=== PATIENT | male | born 1955 | race Caucasian/White ===

== ENCOUNTER 2018-03-01 15:51 | Observation (INO) ==
[2018-03-01] MEDS ORDERED: Aspirin 81 MG TAB.CHEW PO ONE (16:08)
--- NOTE | 2018-03-01 16:12 | Emergency Department Note ---
Disposition Clinical Impression: Chest pain Qualifiers: Chest pain type: unspecified Qualified Code(s): R07.9 - Chest pain, unspecified Disposition: Admitted As Inpatient Condition: Fair Time of Disposition: 19:41 Chest Pain HPI - General Chief Complaint: ED Chest Pain Stated Complaint: chest pain x 2 hrs Time Seen by Provider: 03/01/18 16:00 Source: patient Limitations: no limitations Vital Signs Reviewed: Yes Nursing Notes Reviewed: Yes - History of Present Illness HPI Narrative: 62-year-old male presents from home for evaluation of chest pain. Onset 2 hours prior to arrival. Described as substernal intense heaviness rated 8/10 in severity. Nonradiating. Associated with dyspnea and lightheadedness. This occurred while he was sitting and at rest. It is been constant since onset. Patient is a history of CA with stent 1 placed 3 years ago. His symptoms today are slightly different than symptoms of his previous CA and at his prior CA this chest pain or laxity and waning and he had associated left jaw numbness. PMH: Obesity, hyperlipidemia, COPD Antiplatelet: Aspirin and Plavix. Anticoagulant: None Health Care Facility Administrator: Dr. Diaz ROS: Positive: As above Negative: Fever, chills, nausea, vomiting, palpitations, back pain, numbness/ tingling/weakness of his upper extremities, cough, abdominal pain Severity scale (1-10): 8 - Related Data Home Medications Medication Instructions Recorded Confirmed Aspirin [Adult Low Dose Aspirin EC] 81 mg PO QAM 10/05/15 03/01/18 Atorvastatin Calcium [Lipitor] 20 mg PO QPM 10/05/15 03/01/18 Clopidogrel [Plavix] 75 mg PO QAM 10/05/15 03/01/18 FLUoxetine HCl [Prozac] 20 mg PO QAM 10/05/15 03/01/18 Folic Acid 1 mg PO QAM 10/05/15 03/01/18 Methotrexate [Otrexup] 17.5 mg PO FR 10/05/15 03/01/18 Metoprolol XL (24 HR) Succ [Toprol 25 mg PO QAM 10/05/15 03/01/18 Xl] Omeprazole [PriLOSEC] 20 mg PO BID 10/05/15 03/01/18 Hydroxychloroquine [Plaquenuil] 400 mg PO DAILY 03/01/18 03/01/18 Previous Rx's Medication Instructions Recorded Albuterol Sulfate [Albuterol 2 puff IH Q4HR #1 hfa.aer.ad 10/09/15 Inhaler] Allergies Allergy/AdvReac Type Severity Reaction Status Date / Time No Known Allergies Allergy Verified 03/01/18 15:54 All systems ED: reviewed and negative except as stated. Review of Systems: As Per HPI Chest Pain PMH - Past Medical History Medical history: Reports: arthritis, cancer, COPD, GERD, hyperlipidemia, hypertension, myocardial infarction, RA Surgical history: Reports: no surgical history Psychiatric history: Reports: no psych history - Social History Smoking Status: Former smoker Alcohol use: Reports: rarely Drug use: Reports: none Physical Exam Vital Signs Reviewed General: Patient is alert, oriented, and in moderate distress and discomfort from his chest symptoms Head: atraumatic, normocephalic Eye: normal appearance, no scleral icterus, no conjunctival injection ENT: mucous membranes moist, normal external ear exam Neck: normal inspection, trachea midline, full ROM Chest: normal inspection, symmetric chest rise Respiratory: Good respiratory effort. Bilateral breath sounds are clear without wheezing, crackles, or rhonchi. Cardiovascular: Regular rate and rhythm. No clicks, rubs, gallops, or murmors. Normal heart sounds. Bilateral radial pulses 2/4 and equal. Abdomen: Obese. Bowel sounds present normoactive x-4 quadrants. Abdomen is soft, nondistended, and nontender. No guarding or rebound. Musculoskeletal: Spontaneously moving all extremities. Skin: warm, dry, intact. Neuro: Alert and oriented x4. Sensation light touch intact. Psych: Patient's affect is appropriate for situation. - General Limitations: no limitations General appearance: alert, in no apparent distress Course Course Narrative: Patient's chest pain improved from /10-6/10 after sublingual nitroglycerin 3. Blood pressure remained appropriate. Serum hematology is unremarkable. Serum chemistry unremarkable; specifically normal troponin. Chest x-ray per radiology read shows some vascular congestion without edema; patient's lung sounds clear on physical exam. Patient's history and story are concerning. He is in agreement to admission for continued evaluation and management. I discussed the patient with having hospitalist who agrees to accept the patient for continued evaluation and management for chest pain rule out ACS. EKG dated 03/01/18 at 16:04 interpreted as sinus rhythm with rate of 64. IL 167 , QRS 100, QTC 420. Left axis. Compared to previous EKG dated to October 2015 showing no acute ischemic changes comparison. Chest X-Ray 03/01/18 16:09 IMPRESSION: Pulmonary vascular congestion without overt pulmonary edema. D/ / Mp Khan MD / Mp Khan MD Interpreting Provider: Mp Khan MD Vital Signs Temperature 98.3 F 03/01/18 15:54 Pulse Rate 67 03/01/18 15:54 Respiratory Rate 20 03/01/18 15:54 Blood Pressure 143/78 03/01/18 15:54 O2 Sat by Pulse Oximetry 95 03/01/18 15:54 Temperature 98.3 F 03/01/18 16:01 Pulse Rate 50 03/01/18 18:30 Respiratory Rate 18 03/01/18 18:30 Blood Pressure 119/70 03/01/18 18:30 O2 Sat by Pulse Oximetry 98 03/01/18 18:30 Oxygen Delivery Oxygen Delivery Nasal Cannula Chest Pain - Lab Data Result diagrams: 03/01/18 16:18 03/01/18 16:18 Lab Results 03/01/18 03/01/18 Range/Units 16:18 16:18 WBC 6.3 (4.3-11.1) K/mcL RBC 4.97 (4.19-5.50) M/mcL Hgb 15.3 (12.9-16.9) g/dL Hct 43.8 (37.5-50.1) % MCV 88.1 (83.0-100.0) fL MCH 30.8 (28.0-33.3) pg MCHC 34.9 (31.6-35.5) g/dL RDW 13.5 (11.5-14.5) % Plt Count 133 L (140-400) K/mcL MPV 12.4 (9.4-12.4) fL Immature Gran % 0.6 (0-4) % Seg Neutrophils % 64.9 % Lymphocytes % 19.0 % Monocytes % 11.9 % Eosinophils % 3.3 % Basophils % 0.3 % Neutrophils # 4.1 (1.6-8.9) K/mcL Lymphocytes # 1.2 (0.6-4.6) K/mcL Monocytes # 0.8 (0.0-1.3) K/mcL Eosinophils # 0.2 (0.0-0.6) K/mcL Basophils # 0.0 (0.0-0.2) K/mcL Sodium 139 (136-145) mEq/L Potassium 3.9 (3.5-5.1) mEq/L Chloride 107 (98-107) mEq/L Carbon Dioxide 27 (23-29) mEq/L BUN 12 (8-23) mg/dL Creatinine 1.00 (0.70-1.30) mg/dL Est GFR ( Amer) > 60 (> 60) Est GFR (Non-Af Amer) > 60 (> 60) BUN/Creatinine Ratio 12 (6-26) Glucose 89 (70-105) mg/dL Calculated Osmolality 287 (280-300) Calcium 9.0 (8.6-10.3) mg/dL Troponin I < 0.03 (< 0.04) ng/mL Heart Score - Score History: Moderately Suspicious EKG: Non Specific repolarisation Disturbance Age: 45-65 Risk Factors: Equal/Greater than 3 risk factor or history of atherosclerotic disease Troponin: Less than normal limit HEART Score Total: 5
--- NOTE | 2018-03-01 16:23 | Emergency Department Note ---
Disposition Clinical Impression: Chest pain Disposition: Admitted As Inpatient Condition: Good General Adult HPI - General Chief complaint: ED Chest Pain Stated complaint: chest pain x 2 hrs Time Seen by Provider: 03/01/18 16:00 Source: patient Limitations: no limitations - History of Present Illness Pain Scale: 8 - Related Data Home Medications Medication Instructions Recorded Confirmed Aspirin [Adult Low Dose Aspirin EC] 81 mg PO QAM 10/05/15 03/01/18 Atorvastatin Calcium [Lipitor] 20 mg PO QPM 10/05/15 03/01/18 Clopidogrel [Plavix] 75 mg PO QAM 10/05/15 03/01/18 FLUoxetine HCl [Prozac] 20 mg PO QAM 10/05/15 03/01/18 Folic Acid 1 mg PO QAM 10/05/15 03/01/18 Methotrexate [Otrexup] 17.5 mg PO FR 10/05/15 03/01/18 Metoprolol XL (24 HR) Succ [Toprol 25 mg PO QAM 10/05/15 03/01/18 Xl] Omeprazole [PriLOSEC] 20 mg PO BID 10/05/15 03/01/18 Hydroxychloroquine [Plaquenuil] 400 mg PO DAILY 03/01/18 03/01/18 Previous Rx's Medication Instructions Recorded Albuterol Sulfate [Albuterol 2 puff IH Q4HR #1 hfa.aer.ad 10/09/15 Inhaler] Allergies Allergy/AdvReac Type Severity Reaction Status Date / Time No Known Allergies Allergy Verified 03/01/18 15:54 Past Medical History - Past Medical History Medical history: Reports: arthritis, cancer, COPD, GERD, hyperlipidemia, hypertension, myocardial infarction, RA Surgical history: Reports: no surgical history Psychiatric history: Reports: no psych history - Social History Smoking Status: Former smoker Smokeless Tobacco Status: No Alcohol use: Reports: rarely Drug use: Reports: none Physical Exam - General Limitations: no limitations General appearance: alert, in no apparent distress Course Vital Signs Temperature 98.3 F 03/01/18 15:54 Pulse Rate 67 03/01/18 15:54 Respiratory Rate 20 03/01/18 15:54 Blood Pressure 143/78 03/01/18 15:54 O2 Sat by Pulse Oximetry 95 03/01/18 15:54 Temperature 97.9 F 03/02/18 11:10 Pulse Rate 54 03/02/18 11:10 Respiratory Rate 15 03/02/18 11:10 Blood Pressure 119/78 03/02/18 11:10 O2 Sat by Pulse Oximetry 93 03/02/18 11:10 Oxygen Delivery Oxygen Delivery Nasal Cannula Medical Decision Making - Lab Data Result diagrams: 03/02/18 04:30 03/02/18 04:30 Lab Results 03/01/18 03/01/18 Range/Units 16:18 16:18 WBC 6.3 (4.3-11.1) K/mcL RBC 4.97 (4.19-5.50) M/mcL Hgb 15.3 (12.9-16.9) g/dL Hct 43.8 (37.5-50.1) % MCV 88.1 (83.0-100.0) fL MCH 30.8 (28.0-33.3) pg MCHC 34.9 (31.6-35.5) g/dL RDW 13.5 (11.5-14.5) % Plt Count 133 L (140-400) K/mcL MPV 12.4 (9.4-12.4) fL Immature Gran % 0.6 (0-4) % Seg Neutrophils % 64.9 % Lymphocytes % 19.0 % Monocytes % 11.9 % Eosinophils % 3.3 % Basophils % 0.3 % Neutrophils # 4.1 (1.6-8.9) K/mcL Lymphocytes # 1.2 (0.6-4.6) K/mcL Monocytes # 0.8 (0.0-1.3) K/mcL Eosinophils # 0.2 (0.0-0.6) K/mcL Basophils # 0.0 (0.0-0.2) K/mcL Sodium 139 (136-145) mEq/L Potassium 3.9 (3.5-5.1) mEq/L Chloride 107 (98-107) mEq/L Carbon Dioxide 27 (23-29) mEq/L BUN 12 (8-23) mg/dL Creatinine 1.00 (0.70-1.30) mg/dL Est GFR ( Amer) > 60 (> 60) Est GFR (Non-Af Amer) > 60 (> 60) BUN/Creatinine Ratio 12 (6-26) Glucose 89 (70-105) mg/dL Calculated Osmolality 287 (280-300) Calcium 9.0 (8.6-10.3) mg/dL Troponin I < 0.03 (< 0.04) ng/mL Attestation Statement - Attestation Attestation: I examined this patient and my medical decision-making was reviewed with the [employer] KEE[employer] HELPER/PA/Advanced Practice Nurse/Resident Physician. I agree with the documented findings, disposition and treatment plan as described except to the extent set forth below. I did see the patient is spoke with him and examine him. Does have chest discomfort which started at noon today and is constant and exertional with associated dyspnea. No radiation to the back. No pleuritic aspect. No pain or swelling of the lower extremities. Patient does have a history of cardiac disease with myocardial infarction 2 or 3 years ago. I did review the patient' s EKG showing normal sinus rhythm with rate of 64 without acute ischemic change. Labs pending. 1623 Patient did have a second EKG showing normal sinus rhythm without evidence of ischemic change and this was done at 4:46 PM normal sinus rhythm with rate of 63. Troponin is negative despite over 4 hours of ongoing pain. Patient will be admitted to the hospital, history of cardiac disease which is concerning. I do not suspect pulmonary embolism or aortic dissection. 1810
[2018-03-01] MEDS: Nitroglycerin 0.4 MG TAB.SUBL SL PRN ×3 (16:24→16:35)
[2018-03-01 16:26] LABS: Basophils % 0.3 %; Eosinophils # 0.2 K/mcL (0.0-0.6); Eosinophils % 3.3 %; Hematocrit 43.8 % (37.5-50.1); Hemoglobin 15.3 g/dL (12.9-16.9); Immature Granulocytes % 0.6 % (0-4); Lymphocytes # 1.2 K/mcL (0.6-4.6); Mean Corpuscular HGB Conc 34.9 g/dL (31.6-35.5); Mean Corpuscular Hemoglobin 30.8 pg (28.0-33.3); Mean Corpuscular Volume 88.1 fL (83.0-100.0); Mean Platelet Volume 12.4 fL (9.4-12.4); Monocytes # 0.8 K/mcL (0.0-1.3); Monocytes % 11.9 %; Neutrophils # 4.1 K/mcL (1.6-8.9); Platelet Count 133 K/mcL (140-400); Red Blood Count 4.97 M/mcL (4.19-5.50); Red Cell Distribution Width 13.5 % (11.5-14.5); Segmented Neutrophils % 64.9 %
[2018-03-01] MEDS ORDERED: Ondansetron 4 MG/2 ML VIAL IVP ONE (16:40)
[2018-03-01 16:54] LABS: BUN/Creatinine Ratio 12 (6-26); Blood Urea Nitrogen 12 mg/dL (8-23); Carbon Dioxide 27 mEq/L (23-29); Chloride 107 mEq/L (98-107); Glucose 89 mg/dL (70-105); Osmolality,Calculated 287 (280-300); Potassium 3.9 mEq/L (3.5-5.1); Sodium 139 mEq/L (136-145); Troponin I < 0.03 ng/mL (< 0.04); eGFR For African Americans > 60 (> 60); eGFR For Non-African Americans > 60 (> 60)
[2018-03-01] MEDS ORDERED: Ondansetron 4 MG/2 ML VIAL IVP PRN (18:45)
[2018-03-01 18:59] LABS: Estimated Average Glucose 105 mg/dl; Hemoglobin A1C 5.3 %
--- NOTE | 2018-03-01 19:03 | Internal Med History&Physical ---
Date of Encounter: 03/01/18 Time of Encounter: 18:50 Internal Medicine - H&P: HPI Chief complaint: Chest pain Admitted From: Home Plans for Post Hospital Care: Home History of present illness: Mr. Hamilton is a 62 year old male with hx of CAD, HTN, obesity, AK, and pre- diabetes. Patient reports heavy chest pain sub-midsternal chest pain, patient apparently expressed complaints of dyspnea, lightheadedness and left jaw pain during that time. He indicated that his father dieed at 29 yo in a car accident , but they were unsure if he had a AK that caused the wreck. His mom at the age of 79 from a AK. He rated the pain 10/10. Patient's drove him to the ED where he was given 3 nitroglycerin with relief. Patient states he has nitroglycerin at home but waited to take any. Patient had MRI with stent placement in 2014. indicated he saw Dr. Bishop 3 months ago for similar symptoms, she indicated that no intervention was done at that time. Troponin is less than 0.03, will trend cardiac enzymes every 6 hours x3. Chest x-ray showed pulmonary vascular congestion without overt pulmonary edema. No edema to bilat lower ext today. indicates that some days the edema is present. Potassium was 3.9. Plan for pharmacological stress in am. EKG showed SR rate 64 , no ectopy seen. Blood sugar is controlled at 89. 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 Psychiatric history: no psych history - Past Surgical History Surgical History: no surgical history Additional surgical history: cardiac stent x1 - Social History Smoking Status: Former smoker Smokeless Tobacco Status: No Alcohol use: rarely Drug use: none - Family History Mother Hx Family Cardiac Disorders: Yes Internal Medicine - H&P: Meds Aspirin [Adult Low Dose Aspirin EC] 81 mg PO QAM 10/05/15 [History] Atorvastatin Calcium [Lipitor] 20 mg PO QPM 10/05/15 [History] Clopidogrel [Plavix] 75 mg PO QAM 10/05/15 [History] FLUoxetine HCl [Prozac] 20 mg PO QAM 10/05/15 [History] Folic Acid 1 mg PO QAM 10/05/15 [History] Methotrexate [Otrexup] 17.5 mg PO FR 10/05/15 [History] Metoprolol XL (24 HR) Succ [Toprol Xl] 25 mg PO QAM 10/05/15 [History] Omeprazole [PriLOSEC] 20 mg PO BID 10/05/15 [History] Albuterol Sulfate [Albuterol Inhaler] 2 puff IH Q4HR #1 hfa.aer.ad 10/09/15 [Rx] Hydroxychloroquine [Plaquenuil] 400 mg PO DAILY 03/01/18 [History] 3 Allergy/AdvReac Type Severity Reaction Status Date / Time No Known Allergies Allergy Verified 03/01/18 15:54 All Systems PM: A 10-system review of systems was performed and is negative for pertinent findings except as documented above in the HPI. - Constitutional Constitutional: no chills, no fever(s), no night sweats - EENT Eyes: no change in vision, no discharge, no irritation, no pain, no photophobia Ears: no ear discharge, no ear pain, no tinnitus Nose, mouth and throat: no dysphagia, no nasal discharge, no neck pain, no sore throat - Cardiovascular Cardiovascular ROS IM: chest pain, diaphoresis, dyspnea, lightheadedness, no palpitations, no syncope - Respiratory Respiratory: dyspnea, no cough, no wheezing, no excessive phlegm production - Gastrointestinal Gastrointestinal: no abdominal pain, no diarrhea, no hematemesis, no hematochezia, no melena, no nausea, no vomiting - Musculoskeletal Musculoskeletal ROS IM: no numbness, no tingling - Integumentary Integumentary IM: no rash, no unusual bruising - Neurological Neurological ROS: no confusion, no convulsions, no focal weakness, no numbness, no tingling, no tremor(s) - Hematologic/Lymphatic Hematologic/Lymphatic: no easy bruising - Constitutional Vitals: Temp Pulse Resp BP Pulse Ox 98.3 F 50 18 119/70 98 03/01/18 16:01 03/01/18 18:30 03/01/18 18:30 03/01/18 18:30 03/01/18 18:30 General appearance: Present: A&O X 3 - Head Head exam: Present: atraumatic, normocephalic - Eye Eye exam: Present: PERRL, conjuntiva pink, sclera anicteric Pupils: Present: PERRL - Neck Neck exam general surgery: Present: supple, trachea midline. Absent: lymphadenopathy - Respiratory Respiratory exam: Present: decreased breath sounds. Absent: accessory muscle use, rales, rhonchi, wheezes - Cardiovascular Cardiovascular exam: Present: bradycardia, RRR, +S1, +S2. Absent: diastolic murmur, gallop, rubs, systolic murmur - GI/Abdominal GI/Abdominal exam: Present: normal bowel sounds, soft, no peritoneal signs. Absent: distended, tenderness - Extremities Exam Extremities exam: Present: warm, radial pulses palpable and symmetrical. Absent : calf tenderness, cyanotic, pedal edema - Neurological Exam Neurological exam: Present: CN II-XII intact, oriented X3, no focal deficits. 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 Has hx of [place] with stents. Pharmacological stress test in am Lipid panel in am A1C in am Nitroglycerin SL prn Caridac monitoring Serial cardiac enzymes Oxygen to keep sat gt 92% Qualifiers: Chest pain type: unspecified Qualified Code(s): R07.9 - Chest pain, unspecified (2) CAD (coronary artery disease) Current Visit: No Status: Acute Assessment and plan: Same as above Qualifiers: Coronary Disease-Associated Artery/Lesion type: unspecified vessel or lesion type [place] vs. transplanted heart: [place] heart Associated angina: with unstable angina Qualified Code(s): I25.110 - Atherosclerotic heart disease of [place] coronary artery with unstable angina pectoris (3) Hypertension Current Visit: No Status: Acute Assessment and plan: Bp is controlled Goal is under 140/80 Continue home medications-Metoprolol Qualifiers: Hypertension type: essential hypertension Qualified Code(s): I10 - Essential (primary) hypertension (4) Pulmonary vascular congestion Current Visit: Yes Status: Acute Assessment and plan: CXR showed pulmonary vascular congestion BNP now Echo in am Iv furosemide 40 mg x1 Oxygen prn keep sats gt 92% Start heparin sq 5,000 units q8h - Time Spent With Patient Total time spent is greater than 50% in coordination of care (as documented) at patient's floor/unit and/or counseling patient:
--- NOTE | 2018-03-01 19:55 | Event Note ---
Date of Encounter: 03/01/18 Time of Encounter: 19:51 Patient was seen and examined. I agree with the H&P as written by Medina Antoine NP. Briefly, patient is 62 yo m with history of hypertension, coronary disease, obesity, prediabetes, previous [place] with stents who reports heavy chest pain with associated shortness of breath and lightheadedness with radiation to the left jaw. Nitroglycerin helped improve the pain. EKG with no acute ST or T-wave changes. Troponins were not elevated. Other laboratory workup was unremarkable. Hemodynamically stable in the ED but felt comfortable on O2. GEN: NAD CVS: RRR. S1, S2, No m/r/g RESP: CTAB ABD: Soft, NT, ND, +BS EXT: No edema. 2+ DP. No rashes NEURO: Nonfocal Admit to hospitalist on telemetry Trend cardiac enzymes Stress test in the morning NPO at midnight CXR with pulm vascular congestion. Will give 1 time dose of 40 mg IV lasix check and echo Resume antihypertensives Resume aspirin and statin DVT prophylaxis
[2018-03-01] MEDS ORDERED: Furosemide 40 MG/4 ML VIAL IVP ONE (20:06)
[2018-03-01] MEDS: *HR* Heparin 5,000 UNIT/ML VIAL SQ SCH (22:05)
[2018-03-02] MEDS: *HR* Heparin 5,000 UNIT/ML VIAL SQ SCH (05:08)
[2018-03-02 05:29] LABS: Basophils % 0.4 %; Eosinophils # 0.3 K/mcL (0.0-0.6); Eosinophils % 4.8 %; Hematocrit 41.8 % (37.5-50.1); Hemoglobin 14.6 g/dL (12.9-16.9); Immature Granulocytes % 0.7 % (0-4); Lymphocytes # 1.5 K/mcL (0.6-4.6); Lymphocytes % 27.9 %; Mean Corpuscular HGB Conc 34.9 g/dL (31.6-35.5); Mean Corpuscular Volume 85.8 fL (83.0-100.0); Mean Platelet Volume 12.4 fL (9.4-12.4); Monocytes # 0.8 K/mcL (0.0-1.3); Monocytes % 14.7 %; Neutrophils # 2.8 K/mcL (1.6-8.9); Platelet Count 125 K/mcL (140-400); Red Blood Count 4.87 M/mcL (4.19-5.50); Red Cell Distribution Width 13.6 % (11.5-14.5); Segmented Neutrophils % 51.5 %
[2018-03-02 05:39] LABS: Prothrombin Time 11.8 Seconds (9.4-12.1)
[2018-03-02 05:47] LABS: Troponin I < 0.03 ng/mL (< 0.04)
[2018-03-02 05:50] LABS: Alanine Aminotransferase 28 Units/L (7-52); Albumin 3.9 g/dL (3.5-5.7); Albumin/Globulin Ratio 1.8 (1.1-2.2); Alkaline Phosphatase 86 Units/L (34-104); Aspartate Amino Transferase 20 Units/L (13-39); BUN/Creatinine Ratio 12 (6-26); Bilirubin,Total 0.6 mg/dL (0.3-1.0); Blood Urea Nitrogen 12 mg/dL (8-23); Calcium 9.2 mg/dL (8.6-10.3); Carbon Dioxide 27 mEq/L (23-29); Chloride 104 mEq/L (98-107); Chol/HDL Ratio 2.5 (0-4.9); Cholesterol 116 mg/dL (< 200); Globulin 2.2 g/dL (2.4-3.5); Glucose 90 mg/dL (70-105); HDL Cholesterol 46 mg/dL (40-59); LDL Cholesterol,Calculated 50 mg/dL (0-99); Magnesium 1.9 mg/dL (1.6-2.6); Osmolality,Calculated 287 (280-300); Sodium 139 mEq/L (136-145); Total Protein 6.1 g/dL (6.4-8.9); Triglycerides 98 mg/dL (< 150); eGFR For African Americans > 60 (> 60); eGFR For Non-African Americans > 60 (> 60)
[2018-03-02] MEDS ORDERED: Regadenoson 0.4 MG/5 ML SYRINGE IVP ONE (05:59)
[2018-03-02] MEDS ORDERED: Folic Acid 1 MG TABLET PO SCH (09:00)
[2018-03-02] MEDS ORDERED: FLUoxetine 20 MG CAPSULE PO SCH (09:00)
[2018-03-02] MEDS ORDERED: Metoprolol XL (24 HR) Succ 25 MG TAB.ER.24H PO SCH (09:00)
[2018-03-02] MEDS ORDERED: Aspirin Enteric Coated 81 MG Tablet PO SCH (09:00)
--- NOTE | 2018-03-02 10:59 | Discharge Summary ---
- NOTES TO OUTPATIENT PROVIDER Notes to Outpatient Provider: Placed on observation for chest pain r/o ACS. Troponin, EKG, ECHO and stress test were unremarkable. Patient reassure, no change in home meds, follow up with PCP. Orders not resulted at time of discharge: Pending orders 03/01/18 18:42 NM fernanda perf SPECT multi [NM] Routine 03/02/18 10:18 Troponin I Q6H Date of Encounter: 03/02/18 Time of Encounter: 10:57 - Discharge Diagnosis (1) Chest pain Priority: Primary Status: Acute Qualifiers: Chest pain type: unspecified Qualified Code(s): R07.9 - Chest pain, unspecified (2) CAD (coronary artery disease) Priority: Secondary Status: Chronic Qualifiers: Coronary Disease-Associated Artery/Lesion type: unspecified vessel or lesion type [place] vs. transplanted heart: [place] heart Associated angina: with unstable angina Qualified Code(s): I25.110 - Atherosclerotic heart disease of [place] coronary artery with unstable angina pectoris (3) DVT prophylaxis Priority: Primary Status: Acute (4) Hypertension Priority: Secondary Status: Chronic Qualifiers: Hypertension type: essential hypertension Qualified Code(s): I10 - Essential (primary) hypertension (5) Obesity (BMI 30.0-34.9) Priority: Secondary Status: Chronic Hospital course: Mr. Hamilton is a 62 year old male with hx of CAD, HTN, obesity, [place], and pre- diabetes. Patient reports heavy chest pain sub-midsternal chest pain, patient apparently expressed complaints of dyspnea, lightheadedness and left jaw pain during that time. indicated he saw Dr. Bishop 3 months ago for similar symptoms, she indicated that no intervention was done at that time. itroglycerin helped improve the pain. EKG with no acute ST or T-wave changes. Troponins were not elevated X3. Other laboratory workup was unremarkable. Hemodynamically stable in the ED but felt comfortable on O2 and O2 was weaned off within hours of hospitalization A1C was 5.3, lipid panel was unremarkable ECHO was done which showed EF 60-65%, normal LV chamber size and wall thickness , mild LVDD, no Pulm HTN, no wall motion abnormalities. Stress test showed gated EF 63%, and artifact, perfusion imaging was negatiev for ischemia or infarct Patient is seen and examined at the bedside with his this morning, in stable clinical state with no recurrence of chest pain since arrival. CXR did show some pulmonary vascular congestion without pulm edema, BNP was 112, patient has no pedal edema or hypoxia He is discharged home in stable clinical condition, to follow up with PCP. Plan of care was discussed and he verbalized understanding Discharge discussed with: patient, family, nurse - Time Spent with Patient Total time spent providing and/or coordinating discharge services: Less than 30 minutes - Discharge Medications Home Medications: Aspirin [Adult Low Dose Aspirin EC] 81 mg PO QAM 10/05/15 [History] Atorvastatin Calcium [Lipitor] 20 mg PO QPM 10/05/15 [History] Clopidogrel [Plavix] 75 mg PO QAM 10/05/15 [History] FLUoxetine HCl [Prozac] 20 mg PO QAM 10/05/15 [History] Folic Acid 1 mg PO QAM 10/05/15 [History] Methotrexate [Otrexup] 17.5 mg PO FR 10/05/15 [History] Metoprolol XL (24 HR) Succ [Toprol Xl] 25 mg PO QAM 10/05/15 [History] Omeprazole [PriLOSEC] 20 mg PO BID 10/05/15 [History] Albuterol Sulfate [Albuterol Inhaler] 2 puff IH Q4HR #1 hfa.aer.ad 10/09/15 [Rx] Hydroxychloroquine [Plaquenuil] 400 mg PO DAILY 03/01/18 [History] Allergies/Adverse Reactions: 3 Allergy/AdvReac Type Severity Reaction Status Date / Time No Known Allergies Allergy Verified 03/01/18 15:54 Date of admission: 03/01/18 18:29 Primary care physician: Dionna Fields MD Discharging clinician: Janak Swenson Anticipated date of discharge: 03/02/18 - Constitutional Vitals: Temp Pulse Resp BP Pulse Ox 98.2 F 51 16 113/70 97 03/02/18 04:34 03/02/18 04:34 03/02/18 04:34 03/02/18 04:34 03/02/18 09:40 General appearance: Present: A&O X 3, pleasant, no acute distress, obese - Head Head exam: Present: atraumatic, normocephalic - Eye Eye exam: Present: PERRL, conjuntiva pink, sclera anicteric Pupils: Present: PERRL - Neck Neck exam general surgery: Present: supple, trachea midline. Absent: lymphadenopathy - Respiratory Respiratory exam: Present: CTAB. Absent: accessory muscle use, rales, rhonchi, wheezes - Cardiovascular Cardiovascular exam: Present: RRR, +S1, +S2. Absent: diastolic murmur, gallop, rubs, systolic murmur - GI/Abdominal GI/Abdominal exam: Present: normal bowel sounds, soft, no peritoneal signs. Absent: distended, tenderness - Extremities Exam Extremities exam: Present: warm, radial pulses palpable and symmetrical. Absent : calf tenderness, cyanotic, pedal edema - Neurological Exam Neurological exam: Present: alert, CN II-XII intact, oriented X3, no focal deficits. Absent: pronater drift, facial droop, speech deficit - Skin Skin exam: Present: dry, intact - Patient Status Disposition: Home, Self-Care Condition: Good Functional capacity at discharge: independent ambulation Overall status at discharge: patient is back to baseline - Discharge Instructions Instructions: Chest Pain (DC) Follow Up With: Dionna Fields MD [Primary Care Provider] - (web request 03/02/2018) - Diet and Activity Activity: resume usual activities as tolerated Diet: diabetic diet, low fat, low cholesterol, low salt diet
[2018-03-02 11:15] VITALS: BP 119/78
--- NOTE | 2018-03-04 17:43 | Electrocardiograph Report ---
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
== END 2018-03-02 12:02 | disposition home or self-care (01) ==
LOC: 2ANU 15:51 → EMEROO 15:51 → SUATTDRO 18:29 → 2ANU 18:55
PROVIDERS: ADMIT Internal Medicine Nephrology; ATTEND Internal Medicine